=== PATIENT | male | born 1965 | race Caucasian/White ===

== ENCOUNTER 2023-03-06 01:29 | Emergency (ER) | payer MEDICARE ==
[2023-03-06] MEDS ORDERED: SUBLIMAZE 100 MCG/2 ML IV ONE ×2 (02:20→03:12)
[2023-03-06] MEDS ORDERED: Zofran 4 MG/2 ML VIAL IV ONE (02:20)
[2023-03-06] MEDS ORDERED: CLINDAMYCIN-D5W 900 MG/50 ML*** 900 MG/50 ML BAG IV STA (02:22)
[2023-03-06] MEDS ORDERED: Zofran 4 MG/2 ML VIAL ONE (02:26)
[2023-03-06] MEDS ORDERED: SUBLIMAZE 100 MCG/2 ML ONE ×2 (02:26→03:14)
[2023-03-06] MEDS ORDERED: CLINDAMYCIN-D5W 900 MG/50 ML*** 900 MG/50 ML BAG IV ONE (02:27)
--- NOTE | 2023-03-06 02:27 | ERPHSYRPT ---
- History of Present Illness Source: patient Exam Limitations: no limitations Patient Subjective Stated Complaint: pt states he broke up 2 of his dogs that were fighting and got bit on the rt hand Triage Nursing Assessment: pt alert and oreinted, answers questions approp. pt ambulates into room with steady gait noted. respirations nonlabored. skin warm and dry. lacerations to rt hand with mild active bleeding ntoed. laceration to 2nd digit rt hand aprpox 1cm with no bleeding noted at this time Physician History: 57 yo WM w dog bite vs R hand. Pt broke up a fight w his pit bulls. Dogs are immunized, and pt is UTD on his tetanus. Pt is R handed and denies other injuries. Occurred: other ([id number]) Method of Injury: other (dog Bite) Quality: constant Severity of Pain-Max: severe Severity of Pain-Current: severe Extremities Pain Location: thumb: right, 2nd finger: right Modifying Factors: Improves With: movement Associated Symptoms: none Allergies/Adverse Reactions: Penicillins Allergy (Mild, Verified 03/06/23 02:10) tramadol Allergy (Mild, Verified 03/06/23 02:10) Vomiting Home Medications: Vicodin 5-500 Tablet DAILY PRN PRN 05/25/12 [History] Zyrtec 10 mg DAILY 05/25/12 [History] Hx Tetanus, Diphtheria Vaccination/Date Given: Yes Hx Influenza Vaccination/Date Given: No Hx Pneumococcal Vaccination/Date Given: No Immunizations Up to Date: Yes Travel Risk - International Travel Have you traveled outside of the country in past 3 weeks: No - Coronavirus Screening Are you exhibiting any of the following symptoms?: No Close contact with a COVID-19 positive Pt in past 14-21 Days: No - Vaccine Status Have you recieved a Covid-19 vaccination: No - Review of Systems Constitutional: No Symptoms Eyes: No Symptoms Ears, Nose, & Throat: No Symptoms Respiratory: No Symptoms Cardiac: No Symptoms Abdominal/Gastrointestinal: No Symptoms Genitourinary Symptoms: No Symptoms Neurological: No Symptoms Psychological: No Symptoms Endocrine: No Symptoms Hematologic/Lymphatic: No Symptoms Immunological/Allergic: No Symptoms - Past Medical History Pertinent Past Medical History: No Other Medical History: prostate ca with radiation - Past Surgical History Past Surgical History: Yes Male Surgical History: Prostate Surgery - Social History Smoking Status: Former smoker Exposure to second hand smoke: Yes Drug Use: none Patient Lives Alone: No - Nursing Vital Signs Nursing Vital Signs: Initial Vital Signs Temperature 98.0 F 03/06/23 01:39 Pulse Rate 74 03/06/23 01:39 Respiratory Rate 16 03/06/23 01:39 Blood Pressure 144/94 03/06/23 01:39 O2 Sat by Pulse Oximetry 96 03/06/23 01:39 Pain Scale Pain Intensity 5 Hypertensive - Physical Exam General Appearance: no apparent distress (In pain) Eyes, Ears, Nose, Throat Exam: normal ENT inspection Neck Exam: normal inspection, non-tender, supple Cardiovascular/Respiratory Exam: normal breath sounds, regular rate/rhythm, heart sounds normal Abdominal Exam: non-tender, soft Back Exam: normal inspection Shoulder Exam: normal inspection Elbow/Forearm Exam: normal inspection Wrist Exam: normal inspection Hand Exam: laceration (Large, mangled avulsion injury dorsal base of 1st digit which appears to deep and dissects dorsally/Good distal capillary return and sensation/Good hemostasis/Smaller laceration proximal radial side of 2nd digit w good distal capillary return and sensation) Neuro/Tendon Exam: normal sensation, normal motor functions, normal tendon functions, responds to pain Mental Status Exam: alert, oriented x 3, cooperative Skin Exam: normal color, warm, dry SpO2 Interpretation: normal SpO2: 96 O2 Delivery: Room Air - Course Nursing assessment & vital signs reviewed: Yes - Radiology Exams Hand X-ray Interpretation: Interpreted by me (R hand neg per ER read) Ordered Tests: Active Orders 24 hr Category Date Time Status IV Insertion STAT Care 03/06/23 02:24 Completed HAND (MINIMUM 3 VIEWS) Stat Exams 03/06/23 02:18 Ordered Medication Summary Discontinued Medications Generic Name Dose Route Start Last Admin Trade Name Rosa PRN Reason Stop Dose Admin Fentanyl Citrate 50 mcg 03/06/23 02:20 03/06/23 02:30 Fentanyl Citrate 100 Mcg/2 Ml* Vial IV 03/06/23 02:21 50 mcg STAT ONE Administration Fentanyl Citrate Confirm 03/06/23 02:26 Fentanyl Citrate 100 Mcg/2 Ml* Vial Administered 03/06/23 02:27 Dose 100 mcg .ROUTE .STK-MED ONE Fentanyl Citrate 25 mcg 03/06/23 03:12 03/06/23 03:16 Fentanyl Citrate 100 Mcg/2 Ml* Vial IV 03/06/23 03:13 25 mcg STAT ONE Administration Fentanyl Citrate Confirm 03/06/23 03:14 Fentanyl Citrate 100 Mcg/2 Ml* Vial Administered 03/06/23 03:15 Dose 100 mcg .ROUTE .STK-MED ONE Clindamycin HCl/Dextrose 900 mg in 50 mls @ 100 mls/hr 03/06/23 02:22 03/06/23 03:13 Clindamycin-D5w 900 Mg/50 Ml IV 03/06/23 02:51 Infused STAT STA Infusion Clindamycin HCl/Dextrose Confirm 03/06/23 02:27 Clindamycin-D5w 900 Mg/50 Ml Administered 03/06/23 02:28 Dose 900 mg in 50 mls @ ud IV .STK-MED ONE Ondansetron HCl 4 mg 03/06/23 02:20 03/06/23 02:31 Ondansetron Hcl 4 Mg/2 Ml Vial IV 03/06/23 02:21 4 mg STAT ONE Administration Ondansetron HCl Confirm 03/06/23 02:26 Ondansetron Hcl 4 Mg/2 Ml Vial Administered 03/06/23 02:27 Dose 4 mg .ROUTE .STK-MED ONE - Progress Progress Note: 03/06/23 02:54 Nursing note and vital signs reviewed No food or housing insecurities noted 50mcg IV Fentanyl/4mg IV Zofran 900mg IV Clindamycin Pt accepted by Dr. Zuniga at [facility] Hand surgeon later called and report was given 03/06/23 03:06 Pt transferred due to depth of wound, risk of infection, and possibility of deep structure involvement Wound sterilly dressed wet to dry per nursing IV wrapped per nursing 25mcg Iv Fentanyl 03/06/23 03:11 03/06/23 03:12 03/06/23 03:25 Counseled pt/family regarding: diagnosis, rad results Medical Desision Making - Diagnostic Testing Radiological Interpretation: Interpreted by me - Risk of complications The pt has a mod risk of morbidity or mortality based on: Need for minor surgical intervention in patient with know risk factors - Departure Departure Disposition: Transfer Clinical Impression: Dog bite Condition: Stable Critical Care Time: No Referrals: [facility]AE GARCIA COUNT [facility]CLUDES THE [facility] [Primary Care Provider] - Follow up/PCP as directed Additional Instructions: [facility] Nothing to eat/drink in route
[2023-03-06 03:13] VITALS: BP 133/86; PULSE 72; O2SAT 96
--- NOTE | 2023-03-06 08:48 | XRAY ---
Indication: Dog bite. Comparison: None 3 view left hand demonstrates proximal 2nd finger soft tissue swelling/laceration. No other bony, articular, or soft tissue abnormalities.
== END 2023-03-06 03:24 | disposition short-term general hospital (02) ==
LOC: ED 01:29
DX: S61.051A Open bite of right thumb without damage to nail, initial encounter (principal); S61.250A Open bite of right index finger without damage to nail, initial encounter; W54.0XXA Bitten by dog, initial encounter; Z28.310 Unvaccinated for COVID-19
CPT/HCPCS: 36000; 73130; 96365; 96374; 96375; 99285; J2405; J3010

== ENCOUNTER 2024-02-07 11:40 | Emergency (ER) | payer MEDICARE ==
--- NOTE | 2024-02-07 11:45 | ERPHSYRPT ---
- History of Present Illness Time Seen by Provider: 02/07/24 11:45 Historian: patient Physician History: This is a 58-year-old white male patient who receives his medical care at [facility] in [facility] and presents with sudden onset of sharp right-sided chest pain that has radiated to the mid substernal central area and the pain has worsened. Patient states he cannot take aspirin because he vomits with it as well as it causing bleeding issues. He takes no medications chronically. He has never seen a communication skills instructor. He has no diagnosed coronary artery disease. This morning at 8 AM, he experienced the sudden onset of the above chest pain. Patient has a history of prostate cancer and is status post radiation therapy. Patient is a former smoker of cigarettes. Patient states that he has had morphine in the past without any adverse effects. Timing/Duration: today, worse Quality: sharpness Location: other (Right chest sudden onset sharp pain radiating to substernal central region.) Severity of Pain-Max: moderate Severity of Pain-Current: moderate Prior Chest Pain/Cardiac Workup: no prior chest pain Nitro Today/Relief: no nitro taken today Aspirin Treatment Today: no aspirin today Allergies/Adverse Reactions: Penicillins Allergy (Mild, Verified 03/06/23 02:10) tramadol Allergy (Mild, Verified 03/06/23 02:10) Vomiting aspirin Adverse Reaction (Severe, Verified 02/07/24 11:46) vomit and bleeding Hx Tetanus, Diphtheria Vaccination/Date Given: Yes Hx Influenza Vaccination/Date Given: No Hx Pneumococcal Vaccination/Date Given: No Travel Risk - International Travel Have you traveled outside of the country in past 3 weeks: No - Coronavirus Screening Are you exhibiting any of the following symptoms?: No Close contact with a COVID-19 positive Pt in past 14-21 Days: No - Vaccine Status Have you recieved a Covid-19 vaccination: No - Review of Systems Constitutional: No Symptoms Eyes: No Symptoms Ears, Nose, & Throat: No Symptoms Respiratory: No Symptoms Cardiac: Chest Pain Abdominal/Gastrointestinal: No Symptoms Genitourinary Symptoms: No Symptoms Musculoskeletal: No Symptoms Skin: No Symptoms Neurological: No Symptoms Psychological: No Symptoms Endocrine: No Symptoms Hematologic/Lymphatic: No Symptoms Immunological/Allergic: No Symptoms All Other Systems: Reviewed and Negative - Past Medical History Pertinent Past Medical History: No Other Medical History: prostate ca with radiation - Past Surgical History Past Surgical History: Yes Male Surgical History: Prostate Surgery - Social History Smoking Status: Former smoker Exposure to second hand smoke: Yes Drug Use: none Patient Lives Alone: No - Nursing Vital Signs Nursing Vital Signs: Initial Vital Signs Temperature 97.3 F 02/07/24 11:40 Pulse Rate 68 02/07/24 11:40 Respiratory Rate 20 02/07/24 11:40 Blood Pressure 165/100 02/07/24 11:40 O2 Sat by Pulse Oximetry 99 02/07/24 11:40 Pain Scale Pain Intensity 0 - Physical Exam General Appearance: no apparent distress, alert, anxiety Eye Exam: PERRL/EOMI, eyes nml inspection Ears, Nose, Throat Exam: normal ENT inspection, moist mucous membranes Neck Exam: normal inspection, non-tender, supple, full range of motion Respiratory Exam: normal breath sounds, chest tenderness, lungs clear, airway intact, No respiratory distress Cardiovascular Exam: regular rate/rhythm, normal heart sounds, normal peripheral pulses Gastrointestinal/Abdomen Exam: soft, normal bowel sounds, No tenderness Rectal Exam: not done Extremity Exam: normal inspection, normal range of motion, pelvis stable Neurologic Exam: alert, oriented x 3, cooperative, convertible top installer II-XII nml as tested, nml cerebellar function, nml station & gait, sensation nml Skin Exam: normal color, warm, dry Lymphatic Exam: No adenopathy SpO2 Interpretation: normal O2 Delivery: Room Air - Course Nursing assessment & vital signs reviewed: Yes EKG Interpreted by Me: RATE (59), Sinus Rhythm, NORMAL AXIS, NORMAL INTERVALS, NORMAL QRS, Other (I do not appreciate on this twelve-lead EKG significant ST elevation or T wave abnormalities. There are no comparison twelve-lead EKGs available) Ordered Tests: Active Orders 24 hr Category Date Time Status EKG-ER Only STAT Care 02/07/24 11:51 Active EKG-ER Only STAT Care 02/07/24 15:04 Active IV Insertion STAT Care 02/07/24 11:51 Active Pulse Oximetry (ED) STAT Care 02/07/24 11:51 Active Re-Check Vital Signs STAT Care 02/07/24 11:51 Active CHEST 1 VIEW (PORTABLE) Stat Exams 02/07/24 11:51 Completed CBC W DIFF Stat Lab 02/07/24 11:45 Completed CMP Stat Lab 02/07/24 11:45 Completed D-DIMER QUANTITATIVE Stat Lab 02/07/24 11:45 Completed NT PRO BNPII Stat Lab 02/07/24 11:45 Completed PROTIME WITH INR Stat Lab 02/07/24 11:45 Completed TROPONIN Q4H Lab 02/07/24 11:45 Completed TROPONIN Q4H Lab 02/07/24 14:57 Completed TROPONIN Q4H Lab 02/07/24 20:00 Ordered Medication Summary Generic Name Dose Route Start Last Admin Trade Name Freq PRN Reason Stop Dose Admin Sodium Chloride 1,000 mls @ 50 mls/hr 02/07/24 12:00 02/07/24 11:59 Sodium Chloride 0.9% 1000 Ml IV 03/08/24 11:59 50 mls/hr .Q20H FIFI Administration Discontinued Medications Generic Name Dose Route Start Last Admin Trade Name Freq PRN Reason Stop Dose Admin Morphine Sulfate 2 mg 02/07/24 12:37 02/07/24 12:40 Morphine Sulfate 2 Mg/Ml Inj IV 02/07/24 12:38 2 mg STAT ONE Administration Morphine Sulfate Confirm 02/07/24 12:39 Morphine Sulfate 2 Mg/Ml Inj Administered 02/07/24 12:40 Dose 2 mg .ROUTE .STK-MED ONE Nitroglycerin 0.4 mg 02/07/24 11:51 02/07/24 11:58 Nitroglycerin 0.4 Mg (Ed) 0.4 Mg Tab.Subl SL 02/07/24 11:52 0.4 mg STAT ONE Administration Nitroglycerin Confirm 02/07/24 11:57 Nitroglycerin 0.4 Mg (Ed) 0.4 Mg Tab.Subl Administered 02/07/24 11:58 Dose 0.4 mg SL .STK-MED ONE Ondansetron HCl 4 mg 02/07/24 11:51 02/07/24 11:59 Ondansetron Hcl 4 Mg/2 Ml Vial IV 02/07/24 11:52 4 mg STAT ONE Administration Ondansetron HCl Confirm 02/07/24 11:57 Ondansetron Hcl 4 Mg/2 Ml Vial Administered 02/07/24 11:58 Dose 4 mg .ROUTE .STK-MED ONE Lab/Rad Data: Laboratory Result Diagrams 02/07/24 11:45 02/07/24 11:45 Laboratory Results 02/07/24 02/07/24 02/07/24 Range/Units 14:57 11:45 11:45 WBC (4.0-10.5) x10^3/uL RBC (4.1-5.6) x10^6/uL Hgb (12.5-18.0) g/dL Hct (42-50) % MCV (78-100) fL MCH (26-32) pg MCHC (32-36) g/dL RDW (11.5-14.0) % Plt Count (150-450) x10^3/uL MPV (7.5-11.0) fL Gran % (36.0-66.0) % Immature Gran % (Auto) (0.00-0.4) % Nucleat RBC Rel Count (0.00-0.1) % Eos # (Auto) (0-0.5) x10^3/uL Immature Gran # (Auto) (0.00-0.03) x10^3u/L Absolute Lymphs (auto) (1.0-4.6) x10^3/uL Absolute Monos (auto) (0.0-1.3) x10^3/uL Absolute Nucleated RBC (0.00-0.01) x10^3u/L Lymphocytes % (24.0-44.0) % Monocytes % (0.0-12.0) % Eosinophils % (0.00-5.0) % Basophils % (0.0-0.4) % Absolute Granulocytes (1.4-6.9) x10^3/uL Basophils # (0-0.4) x10^3/uL PT 10.4 (9.4-12.5) SECONDS INR 0.95 (0.8-3.0) D-Dimer < 0.19 (0.0-0.50) mg/L Sodium (135-145) mmol/L Potassium (3.5-5.1) mmol/L Chloride (98-107) mmol/L Carbon Dioxide (22-30) mmol/L Anion Gap (5-15) MEQ/L BUN (9-20) mg/dL Creatinine (0.66-1.25) mg/dL Estimated GFR ML/MIN Glucose (74-106) mg/dL Calcium (8.4-10.2) mg/dL Total Bilirubin (0.2-1.3) mg/dL AST (17-59) U/L ALT (0-50) U/L Alkaline Phosphatase (38-126) U/L Troponin I < 0.012 < 0.012 (0.000-0.034) ng/mL NT-Pro-B Natriuret Pep (<300) pg/mL Serum Total Protein (6.3-8.2) g/dL Albumin (3.5-5.0) g/dL 02/07/24 02/07/24 Range/Units 11:45 11:45 WBC 7.2 (4.0-10.5) x10^3/uL RBC 5.18 (4.1-5.6) x10^6/uL Hgb 17.4 (12.5-18.0) g/dL Hct 48.8 (42-50) % MCV 94.2 (78-100) fL MCH 33.6 H (26-32) pg MCHC 35.7 (32-36) g/dL RDW 12.1 (11.5-14.0) % Plt Count 278 (150-450) x10^3/uL MPV 11.0 (7.5-11.0) fL Gran % 67.3 H (36.0-66.0) % Immature Gran % (Auto) 0.1 (0.00-0.4) % Nucleat RBC Rel Count 0.0 (0.00-0.1) % Eos # (Auto) 0.28 (0-0.5) x10^3/uL Immature Gran # (Auto) 0.01 (0.00-0.03) x10^3u/L Absolute Lymphs (auto) 1.47 (1.0-4.6) x10^3/uL Absolute Monos (auto) 0.54 (0.0-1.3) x10^3/uL Absolute Nucleated RBC 0.00 (0.00-0.01) x10^3u/L Lymphocytes % 20.5 L (24.0-44.0) % Monocytes % 7.5 (0.0-12.0) % Eosinophils % 3.9 (0.00-5.0) % Basophils % 0.7 (0.0-0.4) % Absolute Granulocytes 4.82 (1.4-6.9) x10^3/uL Basophils # 0.05 (0-0.4) x10^3/uL PT (9.4-12.5) SECONDS INR (0.8-3.0) D-Dimer (0.0-0.50) mg/L Sodium 142 (135-145) mmol/L Potassium 3.9 (3.5-5.1) mmol/L Chloride 108 H (98-107) mmol/L Carbon Dioxide 23 (22-30) mmol/L Anion Gap 15.2 H (5-15) MEQ/L BUN 18 (9-20) mg/dL Creatinine 1.08 (0.66-1.25) mg/dL Estimated GFR 79.5 ML/MIN Glucose 113 H (74-106) mg/dL Calcium 9.8 (8.4-10.2) mg/dL Total Bilirubin 0.50 (0.2-1.3) mg/dL AST 28 (17-59) U/L ALT 27 (0-50) U/L Alkaline Phosphatase 68 (38-126) U/L Troponin I (0.000-0.034) ng/mL NT-Pro-B Natriuret Pep 22.8 (<300) pg/mL Serum Total Protein 8.4 H (6.3-8.2) g/dL Albumin 4.8 (3.5-5.0) g/dL - Progress Progress: improved, re-examined Air Movement: good Progress Note: 02/07/24 12:49 This patient's medical issue is 1 of moderate complexity. The level of complexity and the workup performed is based on review of the patient's past medical history, review of the patient's medication list, review of the patient's drug allergy list, history present illness and physical findings on examination. This patient's workup includes placement of an intravenous line, CBC, CMP, twelve-lead EKG, D-dimer level, troponin level, BNP level and order a chest x-ray. We will also provide the patient with nitroglycerin. Patient is refusing aspirin because he states that he is allergic to it because it causes him vomiting and bleeding. We will also provide him with Zofran and morphine intravenously. The chest x-ray was interpreted by the radiologist and I reviewed the impression. Impression states minimal left costophrenic angle infiltrate/atelectasis. The remainder of the study is within normal limits. 02/07/24 13:29 Repeat, 2-hour twelve-lead EKG was performed on 02/07/2024 at 1315. The EKG was interpreted by me. The heart rate is 55 bpm and normal sinus rhythm. There is normal axis, normal QT interval, normal QRS. There is no evidence of any acute ischemic changes on this repeat twelve-lead EKG. 02/07/24 15:33 The repeat, 3-hour troponin level is within normal limits. We will discharge the patient to home. He does not have any chest pain. Blood Culture(s) Obtained: No Antibiotics given: No Counseled pt/family regarding: lab results, diagnosis, need for follow-up, rad results Medical Desision Making - Independent Historian Additional History obtained from: Spouse - Diagnostic Testing Diagnostic test were ordered, analyzed, and reviewed by me: Yes Radiological Interpretation: Reviewed by me, Teleradiologist Report - Risk of complications The pt has a mod risk of morbidity or mortality based on: Need for prescription drug management - Departure Departure Disposition: Home Clinical Impression: Nonspecific chest pain, Infiltrate of left lung present on chest x-ray Condition: Stable Critical Care Time: No Referrals: [facility] [LOCATION] - Follow up/PCP as directed Additional Instructions: Take your medications as prescribed. Follow-up with your primary care provider on 02/10/2024, by phone, to make arranges for follow-up within the next 3 to 5 days to discuss further workup, if necessary for nonspecific chest pain. Prescriptions: Cefdinir 300 mg PO BID #14 cap
[2024-02-07] MEDS ORDERED: Zofran 4 MG/2 ML VIAL ONE (11:57)
[2024-02-07] MEDS ORDERED: Nitrostat 0.4 MG (ED) SL ONE (11:57)
[2024-02-07] MEDS ORDERED: Sodium Chloride 0.9% 1000 ML 1,000 ML ONE (11:57)
[2024-02-07] MEDS: Nitrostat 0.4 MG (ED) SL ONE (11:58)
[2024-02-07] MEDS: Zofran 4 MG/2 ML VIAL IV ONE (11:59)
[2024-02-07] MEDS: Sodium Chloride 0.9% 1000 ML 1,000 ML IV SCH (11:59)
[2024-02-07 12:01] LABS: Absolute Neutrophil Ct (ANC) 4.82 x10^3/uL (1.4-6.9); BASOPHIL % 0.7 % (0.0-0.4); Basophil (Absolute #) 0.05 x10^3/uL (0-0.4); Eosinophil % 3.9 % (0.00-5.0); Eosinophil (Absolute #) 0.28 x10^3/uL (0-0.5); Hematocrit 48.8 % (42-50); Hemoglobin 17.4 g/dL (12.5-18.0); IMMATURE GRAN # 0.01 x10^3u/L (0.00-0.03); IMMATURE GRAN % 0.1 % (0.00-0.4); Lymphocyte (Absolute #) 1.47 x10^3/uL (1.0-4.6); Lymphocytes % 20.5 % (24.0-44.0); Mean Cell Volume 94.2 fL (78-100); Mean Corpuscular Hemoglobin 33.6 pg (26-32); Mean Corpuscular Hgb Concent. 35.7 g/dL (32-36); Monocyte (Absolute #) 0.54 x10^3/uL (0.0-1.3); Monocytes % 7.5 % (0.0-12.0); Neutrophil % 67.3 % (36.0-66.0); Platelet Count 278 x10^3/uL (150-450); Red Blood Count 5.18 x10^6/uL (4.1-5.6); Red Cell Distribution Width 12.1 % (11.5-14.0); White Blood Count 7.2 x10^3/uL (4.0-10.5)
[2024-02-07 12:05] VITALS: TEMP 97.2
--- NOTE | 2024-02-07 12:08 | XRAY ---
Indication: Chest pain and short of breath. Comparison: None Portable apical lordotic chest demonstrates minimal left costophrenic angle infiltrate/atelectasis. Remaining heart and lungs normal. Bony thorax intact.
[2024-02-07 12:16] LABS: D-DIMER QUANTITATIVE < 0.19 mg/L (0.0-0.50); INR 0.95 (0.8-3.0); PROTIME 10.4 SECONDS (9.4-12.5)
[2024-02-07 12:24] LABS: ALBUMIN 4.8 g/dL (3.5-5.0); ANION GAP 15.2 MEQ/L (5-15); BILIRUBIN,TOTAL 0.5 mg/dL (0.2-1.3); Calcium 9.8 mg/dL (8.4-10.2); Creatinine 1 1.08 mg/dL (0.66-1.25); EST GLOMERULAR FILTRATION RATE 79.5 ML/MIN; NT PRO BNPII 22.8 pg/mL (<300); Potassium 3.9 mmol/L (3.5-5.1); Total Protein 8.4 g/dL (6.3-8.2)
[2024-02-07] MEDS ORDERED: MORPHINE SULFATE 2 MG INJ ONE (12:39)
[2024-02-07] MEDS: MORPHINE SULFATE 2 MG INJ IV ONE (12:40)
[2024-02-07 15:04] VITALS: PULSE 55
[2024-02-07 15:23] VITALS: BP 124/77; RESP 16; O2SAT 94
== END 2024-02-07 15:50 | disposition home or self-care (01) ==
LOC: ED 11:40
DX: R07.89 Other chest pain (principal); R91.8 Other nonspecific abnormal finding of lung field; Z28.310 Unvaccinated for COVID-19; Z20.828 Contact with and (suspected) exposure to other viral communicable diseases
CPT/HCPCS: 36000; 36415; 71045; 80053; 83880; 84484; 85025; 85379; 85610; 93005; 94760; 96374; 96375; 99284; J2270; J2405; A9270-GY